=== PATIENT | female | born 1995 | race Caucasian/White ===

== ENCOUNTER 2023-01-18 18:13 | Emergency (ER) | payer SELFPAY ==
[~2023-01-18] VITALS: Ht 154.9 cm; Wt 111.1 kg
[2023-01-18 18:32] VITALS: BP 131/69; PULSE 92; RESP 20; TEMP 99.5; O2SAT 98
[2023-01-18] MEDS ORDERED: IBUP-2213 PO (19:45)
== END 2023-01-18 22:02 | disposition home or self-care (01) ==
LOC: MED 18:13
DX: R07.89 Other chest pain (principal); R03.0 Elevated blood-pressure reading, without diagnosis of hypertension; Z79.899 Other long term (current) drug therapy
CPT/HCPCS: 71045; 93005; 99283